=== PATIENT | female | born 1975 | race Caucasian/White ===

== ENCOUNTER 2017-01-20 07:08 | Emergency (ER) | payer OTHER ==
[~2017-01-20] VITALS: Ht 170.2 cm; Wt 90.5 kg
[~2017-01-20 07:08] MED LIST: AUGM875T PO; LORTA5 PO; TRAM50 PO; ZOFR4TAB3 SL
[2017-01-20] MEDS ORDERED: KETOROLAC TROMETHAMINE 60 MG/2 ML (IM) VIAL IM ONE (07:15)
[2017-01-20] MEDS ORDERED: HYDROmorphone HCL PF 1 MG/ML VIAL IM ONE (07:15)
[2017-01-20 07:16] VITALS: BP 140/89; PULSE 81; RESP 16; TEMP 98.2; O2SAT 100
[2017-01-20] MEDS ORDERED: ONDANSETRON ODT 4 MG TAB PO ONE (07:45)
--- NOTE | 2017-01-20 08:06 | PD ---
HPI Chief Complaint: Back/ Neck Pain or Injury Time Seen by Provider: 07:12 Travel History International Travel<30 days: No Contact w/Intl Traveler<30days: No Traveled to known affect area: No History of Present Illness HPI This is a 41-year-old female who presents to the emergency department with 2 days of lower back pain described as spasm immediately above her buttocks, intermittent, severe when she moves and tries to walk. She denies any numbness or weakness. She says this morning she wasn't able to sit down on the toilet because she was so painful and had to urinate standing up in the shower. She never had pain like this before. She does have a history of kidney stones and pyelonephritis but this is different and is more associated with movement. She denies any recent injuries. She took 2 muscle relaxers this morning that she had left over from an old injury. She says she's not been on any pain medication since she had her wisdom teeth taken out 2 years ago. [facility] Past Medical History Cardiovascular Problems: Yes (MITRAL VALVE PROLAPSE) Diminished Hearing: No Gastrointestinal Disorders: Yes (INTERNAL HEMORRHOIDS) Kidney Stones: Yes Immunizations Current: No Tetanus Vaccination: Unknown ?: Not : 3 Para: 3 Past Surgical History Genitourinary Surgery: Yes (kidney stone surgery) Social History Alcohol Use: Yes (occasional) Tobacco Use: No Substance Use: No Allergies-Medications (Allergen,Severity, Reaction): Coded Allergies: Cephalosporins (Unverified Allergy, Severe, Anaphylaxis, 01/20/17) Reported Meds & Prescriptions Reported Meds & Active Scripts Active No Active Prescriptions or Reported Medications Review of Systems Except as stated in HPI: all other systems reviewed are Neg Physical Exam Narrative GENERAL:Well appearing, no acute distress SKIN: Warm and dry. HEAD: Atraumatic. Normocephalic. EYES: Pupils equal and round. No injection or drainage. ENT: Moist mucous membranes NECK: Trachea midline. CARDIOVASCULAR: Regular rate and rhythm. No murmur appreciated. RESPIRATORY: Clear to auscultation. Breath sounds equal bilaterally. GASTROINTESTINAL: Abdomen soft, non-tender, nondistended. MUSCULOSKELETAL: No obvious deformities. Some tenderness to palpation over the lower lumbar spine. NEUROLOGICAL: Awake and alert. No obvious cranial nerve deficits. 5 out of 5 strength in the bilateral upper and lower extremities. PSYCHIATRIC: Appropriate mood and affect; insight and judgment normal. Data Data Last Documented VS Vital Signs Date Time Temp Pulse Resp B/P Pulse Ox O2 Delivery O2 Flow Rate FiO2 01/20/17 07:16 98.2 81 16 140/89 100 Orders Ketorolac Inj (Toradol Inj) (01/20/17 07:15) Hydromorphone Pf Inj (Dilaudid Pf Inj) (01/20/17 07:15) Spine, Lumbar - Ltd (Ap & Lat) (01/20/17 ) Ed Urine Pregnancytest Poc (01/20/17 07:13) Urinalysis - C+S If Indicated (01/20/17 07:14) Ondansetron Odt (Zofran Odt) (01/20/17 07:45) Labs Laboratory Tests Test 01/20/17 08:45 Urine Collection Type CLEAN CATCH Urine Color YELLOW Urine Turbidity CLEAR Urine pH 5.5 Urine Specific [place] 1.026 Urine Protein TRACE mg/dL Urine Glucose (UA) NEG mg/dL Urine Ketones NEG mg/dL Urine Occult Blood SMALL Urine Nitrite NEG Urine Bilirubin NEG Urine Leukocyte Esterase NEG Urine RBC 0-3 /hpf Urine WBC 0-2 /hpf Urine Squamous Epithelial 0-5 /hpf Cells Urine Amorphous Sediment FEW Microscopic Urinalysis Comment CULT NOT INDICATED MDM Medical Decision Making Medical Screen Exam Complete: Yes Emergency Medical Condition: Yes Interpretation(s) afebrile, no tachycardia, normotensive urinalysis: no infection lumbar spine xray: normal Differential Diagnosis Lumbar strain, lumbar radiculopathy, sacroiliitis, compression fracture, urinary tract infection, nephrolithiasis Narrative Course This is a 41-year-old female who presents to the emergency department with low back pain at the lumbar sacral junction, described as a spasm. It is clearly musculoskeletal in nature and I don't suspect a kidney stone or alternate surgical etiology of her symptoms. She has a normal neurologic exam and no red flags for cauda equina syndrome. Urinalysis was reassuring and test was negative. Lumbar x-ray is reassuring. Patient received Dilaudid and Toradol and feels much better. She will be discharged home. Diagnosis Primary Impression: Lumbosacral radiculopathy Patient Instructions: General Instructions Departure Forms: Tests/Procedures, Work Release Enter return to work date: Jan 22, 2017 Additional Instructions: If you develop weakness of your legs, difficulty walking, numbness of your legs or your genital or rectal area, loss of your bowel or bladder, or difficulty urinating return to the emergency department immediately. Followup with your primary care physician in one week if your symptoms have not improved. Med/Other Pt SpecificInfo: Prescription(s) given Scripts Ondansetron Odt (Zofran Odt)4 Mg Tab4 Mg SL Q6HR PRN (Nausea/Vomiting) 10 Days Ref 0 Prov:Aishwarya Stephens MD 01/20/17 Tramadol 50 Mg Tab50 Mg PO Q6H PRN (PAIN) #10 TAB Ref 0 Prov:Aishwarya Stephens MD 01/20/17 Naproxen 500 Mg Zml035 Mg PO BID #30 TAB Ref 0 Prov:Aishwarya Stephens MD 01/20/17 Disposition: 01 DISCHARGE HOME Condition: Stable Aishwarya Stephens MD Jan 20, 2017 08:06
[2017-01-20 08:54] LABS: BLOOD, URINE SMALL (NEG); GLUCOSE,URINE NEG (NEG); KETONE, URINE NEG (NEG); NITRITE,URINE NEG (NEG); PH, URINE 5.5 (5.0-8.5)
[2017-01-20 09:03] LABS: METHOD OF COLLECTION CLEAN CATCH; URINE COLOR YELLOW (YELLW/STRAW)
[2017-01-20 09:04] LABS: COMMENT (UR) CULT NOT INDICATED; COMMENT2 (UR) MUCOUS PRESENT; CULTURE IF INDICATED CULT NOT INDICATED; RBC, URINE 0-3 /hpf (0-3); SQUAMOUS EPITHELIAL CELL URINE 0-5 /hpf (0-5); WBC, URINE 0-2 /hpf (0-5)
--- NOTE | 2017-01-20 09:07 | RADHPO ---
EXAM DATE/TIME: 01/20/2017 08:15 [place] COMPARISON: No previous studies available for comparison. INDICATIONS : Low back pain, no known injury. MEDICAL HISTORY : None. SURGICAL HISTORY : None. ENCOUNTER: Initial ACUITY: 2 days PAIN SCORE: 10/10 LOCATION: Bilateral low back FINDINGS: Two view examination was performed. There are five non-rib bearing vertebral bodies. A very mild sco liotic curvature is seen with concavity towards the patient's right centered at L4-L5. The disc spac es are maintained. The pedicles are intact. Bony mineralization is normal. No fracture is identifi ed. CONCLUSION: Unremarkable limited examination of the lumbar spine. Eddie Meredith Jr., MD on January 20, 2017 at 9:04 Board Certified Radiologist. This report was verified electronically.
[2017-01-20] MEDS ORDERED: ZOFR4TAB3 SL (09:15)
[2017-01-20] MEDS ORDERED: TRAM50TA PO (09:15)
[2017-01-20] MEDS ORDERED: NAPR500T PO (09:15)
== END 2017-01-20 09:33 | disposition home or self-care (01) ==
LOC: PHED 07:08
DX: M54.17 Radiculopathy, lumbosacral region (principal)
CPT/HCPCS: 72100; 81001; 84703; 96372; 99284; J1170; J1885